=== PATIENT | female | born 1995 | race Caucasian/White ===

== ENCOUNTER 2018-02-05 20:44 | Emergency (ER) | payer OTHER ==
[~2018-02-05] VITALS: Ht 157.5 cm; Wt 65.8 kg
[2018-02-05 20:57] VITALS: BP_SYST 110
[2018-02-06] MEDS ORDERED: DIPHENHYDRAMINE HCL 25 MG CAPSULE PO ONE (01:00)
[2018-02-06 01:13] VITALS: BP_SYST 112
== END 2018-02-06 01:13 | disposition home or self-care (01) ==
LOC: SED 20:44
DX: T45.0X5A Adverse effect of antiallergic and antiemetic drugs, initial encounter (principal); J45.909 Unspecified asthma, uncomplicated; Y92.89 Other specified places as the place of occurrence of the external cause
CPT/HCPCS: 81025; 99281; Q0163